=== PATIENT | male | born 2000 | race African-American/Black ===

== ENCOUNTER 2019-03-09 14:11 | Emergency (ER) | payer SELFPAY ==
[~2019-03-09] VITALS: Ht 182.9 cm; Wt 120.0 kg
[2019-03-09 16:45] VITALS: BP 135/71
== END 2019-03-09 16:45 | disposition home or self-care (01) ==
LOC: ER 14:40
DX: S09.90XA Unspecified injury of head, initial encounter (principal); M54.9 Dorsalgia, unspecified; J45.909 Unspecified asthma, uncomplicated; V49.88XA Car occupant (driver) (passenger) injured in other specified transport accidents, initial encounter; Y93.89 Activity, other specified; Y92.89 Other specified places as the place of occurrence of the external cause; Y99.8 Other external cause status
CPT/HCPCS: 99281

== ENCOUNTER 2022-06-21 02:01 | Emergency (ER) | payer MEDICAID ==
[~2022-06-21] VITALS: Ht 182.9 cm; Wt 145.0 kg
[2022-06-21 02:09] VITALS: BP 143/80
== END 2022-06-21 05:24 | disposition home or self-care (01) ==
LOC: ER 02:01
DX: R07.89 Other chest pain (principal); J45.909 Unspecified asthma, uncomplicated; R00.0 Tachycardia, unspecified; R94.31 Abnormal electrocardiogram [ECG] [EKG]; Z72.89 Other problems related to lifestyle
CPT/HCPCS: 36415; 84484; 93005; 99284

== ENCOUNTER 2022-07-01 21:08 | Emergency (ER) | payer MEDICAID ==
[~2022-07-01] VITALS: Ht 182.9 cm; Wt 145.0 kg
[2022-07-01 22:26] VITALS: BP 150/96
== END 2022-07-02 04:44 | disposition left against medical advice (07) ==
LOC: ER 21:08
DX: Z53.21 Procedure and treatment not carried out due to patient leaving prior to being seen by health care provider (principal)

== ENCOUNTER 2023-10-30 02:25 | Emergency (ER) | payer SELFPAY ==
[~2023-10-30] VITALS: Ht 180.3 cm; Wt 130.0 kg
[2023-10-30 02:31] VITALS: BP 129/81; PULSE 119; RESP 20; TEMP 98.7; O2SAT 96
[2023-10-30] MEDS ORDERED: ACETAMINOPHEN 325MG TABLET PO STA (02:42)
[2023-10-30] MEDS ORDERED: SODIUM CHLORIDE 0.9% 1,000 ML IV ONE (02:45)
[2023-10-30 02:55] LABS: BASOPHILS % 0.5 % (0.0-2.0); EOSINOPHILS % 1.3 % (0.0-5.0); HEMATOCRIT. 40.4 % (42.0-52.0); HEMOGLOBIN. 13.2 g/dL (14.0-18.0); LYMPHOCYTES % 37.9 % (20.0-50.0); MEAN CORPUSCULAR HEMOGLOBIN 26.7 pg (28.0-32.0); MEAN CORPUSCULAR HGB CONC 32.7 g/dL (31.0-37.0); MEAN CORPUSCULAR VOLUME 81.7 fL (80.0-94.0); MEAN PLATELET VOLUME 9.1 fl (7.4-10.4); MONOCYTES % 5.6 % (2.0-8.0); NEUTROPHILS % 54.7 % (40.0-76.0); PLATELET 256 x1000/uL (130-400); RED BLOOD CELL COUNT 4.94 mill/uL (4.7-6.1); RED CELL DISTRIBUTION WIDTH 13.7 % (11.6-14.6); WHITE BLOOD COUNT 9.8 x1000/uL (4.5-11.0)
[2023-10-30 03:14] LABS: ALANINE AMINOTRANSFERASE 19 IU/L (10-49); ALBUMIN 4.3 g/dL (3.2-4.8); ASPARTATE AMINOTRANSFERASE 20 IU/L (<34); BILIRUBIN TOTAL 0.2 mg/dL (0.1-1.0); CALCIUM 8.8 mg/dL (8.7-10.4); CARBON DIOXIDE 27 mEq/L (21-32); CHLORIDE 105 mEq/L (98-107); CREATININE 1.1 mg/dL (0.6-1.3); GLUCOSE 151 mg/dL (70-105); POTASSIUM 3.8 mEq/L (3.5-5.1); PROTEIN TOTAL 6.9 g/dL (6.0-8.3); SODIUM 139 mEq/L (136-145); UREA NITROGEN BLOOD 12 mg/dL (9-23)
[2023-10-30 03:15] LABS: TROPONIN I HIGH SENSITIVITY < 4 ng/L (3.0-53)
[2023-10-30 03:16] LABS: ETHANOL BLOOD < 10 mg/dL (<10)
[2023-10-30] MEDS ORDERED: ACETAMINOPHEN 325MG TABLET PO NR (05:00)
== END 2023-10-30 06:00 | disposition home or self-care (01) ==
LOC: ER 02:25
DX: T40.711A Poisoning by cannabis, accidental (unintentional), initial encounter (principal); Y92.89 Other specified places as the place of occurrence of the external cause; J45.909 Unspecified asthma, uncomplicated
CPT/HCPCS: 80053; 80320; 83880; 85025; 85379; 84484; 36415; 71045; 93005; 99285; J7030; G0480

== ENCOUNTER 2025-02-18 03:04 | Emergency (ER) | payer MEDICAID ==
[~2025-02-18] VITALS: Ht 182.9 cm; Wt 123.0 kg
[2025-02-18 03:12] VITALS: O2SAT 100
[2025-02-18 03:51] VITALS: TEMP 36.7; O2SAT 98
[2025-02-18 03:59] VITALS: BP 113/71; PULSE 94; RESP 20
[2025-02-18] MEDS: KETOROLAC 15MG/ML VIAL IM ONE (03:59)
[2025-02-18] MEDS: LIDOCAINE 5% PATCH TOP SCH (03:59)
[2025-02-18] MEDS ORDERED: NAPR-1176 MT (04:09)
[2025-02-18] MEDS ORDERED: LIDO-53 TP (04:09)
== END 2025-02-18 04:56 | disposition home or self-care (01) ==
LOC: ER 03:04
DX: M54.2 Cervicalgia (principal); M54.6 Pain in thoracic spine; J45.909 Unspecified asthma, uncomplicated; F12.90 Cannabis use, unspecified, uncomplicated
CPT/HCPCS: 99283; 96372; J1885